=== PATIENT | male | born 1955 | race Caucasian/White ===

== ENCOUNTER 2016-10-07 11:00 | Emergency (ER) | payer OTHER ==
[~2016-10-07] VITALS: Ht 180.3 cm; Wt 80.3 kg
[2016-10-07] MEDS ORDERED: ASPIR-LOW81 MG PO (12:40)
== END 2016-10-07 14:37 | disposition short-term general hospital (02) ==
LOC: ER 11:00
DX: I16.0 Hypertensive urgency (principal); I10 Essential (primary) hypertension; F17.200 Nicotine dependence, unspecified, uncomplicated